=== PATIENT | male | born 1935 | race Caucasian/White ===

== ENCOUNTER 2021-01-03 08:26 | Outpatient (CLI) | payer MEDICARE, OTHER ==
[~2021-01-03] VITALS: Ht 177.8 cm; Wt 118.2 kg
[2021-01-03] MEDS ORDERED: LASIX 40MG TABL40 MG PO (09:10)
[2021-01-03] MEDS ORDERED: K-DUR 10 MEQ T10 MEQ PO (09:10)
[2021-01-03] MEDS ORDERED: PRINIVIL40 MG PO (09:11)
[2021-01-03] MEDS ORDERED: LYRICA 50MG CAP50 MG PO (09:12)
[2021-01-03] MEDS ORDERED: HYTRIN 1MG C1 MG/CAP PO (09:12)
[2021-01-03] MEDS ORDERED: NORCO 325 MG-51 TAB PO (09:13)
[2021-01-03] MEDS ORDERED: HCTZ 25MG TAB25 MG PO (09:13)
[2021-01-03] MEDS ORDERED: MEVACOR40 MG PO (09:13)
[2021-01-03] MEDS ORDERED: PRIL40 PO (09:14)
[2021-01-03] MEDS ORDERED: FLOMAX 0.40.4 MG/CAP PO (09:15)
[2021-01-03] MEDS ORDERED: COLACE 100100 MG/CAP PO (09:15)
[2021-01-03] MEDS ORDERED: ASPIRIN 32325 MG/TAB PO (09:16)
[2021-01-03 09:33] VITALS: BP 96/77; PULSE 87; TEMP 97.7
--- NOTE | 2021-01-03 10:45 | NUR ---
Dr. Werner is out of the patient's room and finished with the procedure. He verbalized to the nurse that the patient has home health and is going to attempt to learn to straight cath at home.
--- NOTE | 2021-01-03 11:15 | NUR ---
NIR Malloy is finished cleaning up the patient and the supplies from the procedure. The patient's family is at his bedside. Call light is within reach.
--- NOTE | 2021-01-03 11:45 | NUR ---
Discharge instructions were reviewed with the patient and his family at this time. They all verbalized understanding and have no questions for the nurse at this time. The patient did not have IV access for the procedure. The patient was cleaned up with bath wipes and helped into a depends and then his personal clothing for discharge.
--- NOTE | 2021-01-03 11:55 | NUR ---
The patient was escorted out via wheelchair to a private vehicle by NIR Thurman. The patient's belongings and discharge paperwork were sent with him. The patient's family is present to drive him home.
== END 2021-01-03 11:55 | disposition home or self-care (01) ==
LOC: SDCO 08:26
DX: R31.0 Gross hematuria (principal); R33.9 Retention of urine, unspecified; N47.2 Paraphimosis; N40.1 Benign prostatic hyperplasia with lower urinary tract symptoms; I48.91 Unspecified atrial fibrillation; I71.4 Abdominal aortic aneurysm, without rupture; J30.9 Allergic rhinitis, unspecified; M51.36 Other intervertebral disc degeneration, lumbar region; E78.5 Hyperlipidemia, unspecified; I10 Essential (primary) hypertension; G62.9 Polyneuropathy, unspecified; Z79.82 Long term (current) use of aspirin; Z79.891 Long term (current) use of opiate analgesic; Z79.899 Other long term (current) drug therapy; Z87.891 Personal history of nicotine dependence